=== PATIENT | female | born 1965 | race Caucasian/White ===

== ENCOUNTER 2023-10-15 11:13 | Emergency (ER) | payer OTHER, SELFPAY ==
[2023-10-15 11:20] VITALS: BP 145/92; PULSE 56; RESP 14; TEMP 36.6; O2SAT 99; BMI 21.5
[2023-10-15 11:52] VITALS: PULSE 62; O2SAT 98
--- NOTE | 2023-10-15 12:00 | ED_ITS ---
HPI - General Adult General Chief complaint: Unspecified Complaint, Adult Stated complaint: Confused, dizzines,heart palpitations Time Seen by Provider: 10/15/23 11:23 History of Present Illness HPI narrative: This 58-year-old female comes in reporting migraine headache with nausea. She also states that she feels some in her mid and chest discomfort and has had some palpitations. She states that she normally takes Excedrin migraine with sufficient relief for her headache however this 1 is more intense and rates that at 8/10 in severity. She is not taking any other medications. She does not report any lightheadedness or shortness of breath. She does not have any exercise intolerance. Related Data Previous Rx's Medication Instructions Recorded ketorolac 10 mg tablet 10 mg PO Q8H 5 days #15 tabs 10/15/23 ondansetron HCl 4 mg tablet 4 mg PO Q6H #20 tabs 10/15/23 Allergies Allergy/AdvReac Type Severity Reaction Status Date / Time Sulfa (Sulfonamide Allergy Unknown Hives Verified 10/15/23 11:25 Antibiotics) Review of Systems Status of ROS: Reports: 10 or more systems reviewed and unremarkable except as noted in History and below Narrative: Constitutional: No fevers, no weight gain or loss. Eyes: No discharge. No vision changes. HENT: No congestion, no sore throat, no ear pain. Cardiovascular: She reports palpitations. Respiratory: No shortness of breath, no wheezes, no cough. Gastrointestinal: No abdominal pain, no diarrhea. Nausea with a couple episodes of vomiting related to migraine headache. Genitourinary: No dysuria, no hematuria. Musculoskeletal: Normal range of motion. Skin: No rashes, no pruritis. Neurological: No dizziness, weakness, sensory change, speech change. Endo/Heme/Allergies: No bruising or bleeding. No polydipsia. Pysch: no suicidality, no anxiety, no insomnia. All other systems reviewed and are negative. PFSH PFSH Social History Smoking Status: Former smoker How often do you have a drink containing alcohol: never AUDIT-C Alcohol total score: 0 Non-prescribed substance use: denies use Exam Narrative: Exam Narrative: Constitutional: Well-developed, well-nourished, no acute distress. HEENT: Normocephalic, atraumatic. Neck: Normal range of motion. Nontender. Supple. Heart: Regular. No murmurs. Normal rate. Intact distal pulses. Lungs: Clear to auscultation. No chest discomfort. No wheezes, rhonchi, or rales. Abdomen: Normal bowel sounds. Nontender. No rebound tenderness. Genitalia: Deferred. Back: No midline tenderness. Normal range of motion. Extremities: Normal range of motion. No injury. Skin: Intact. No rash. Warm. No erythema or pallor. Neurologic: No altered sensation. No weakness. Alert and oriented. Psychiatric: No suicidality. No anxiety or depression. No insomnia. Nursing notes and vitals signs are reviewed. Const: Vital Signs, click to edit/add: Vital Signs - 24 hr 10/15/23 11:20 10/15/23 11:52 10/15/23 12:01 Temperature 97.8 F Pulse Rate 62 Pulse Rate [Pulse Oximeter] 56 L Respiratory Rate 14 Blood Pressure 128/70 Blood Pressure [Le ft Upper Arm] 145/92 H Pulse Oximetry 99 98 Oxygen Delivery Me thod Room Air 10/15/23 12:04 10/15/23 12:15 10/15/23 12:30 Temperature Pulse Rate 59 L 57 L 69 Pulse Rate [Pulse Oximeter] Respiratory Rate Blood Pressure Blood Pressure [Le ft Upper Arm] Pulse Oximetry 100 99 96 Oxygen Delivery Me thod Course Vital Signs Vital signs: Initial Vital Signs Temperature 97.8 F 10/15/23 11:20 Temperature Source Temporal Artery Scan 10/15/23 11:20 Pulse Rate 56 L 10/15/23 11:20 Pulse Rhythm Regular 10/15/23 11:20 Respiratory Rate 14 10/15/23 11:20 Blood Pressure 145/92 H 10/15/23 11:20 Blood Pressure Mean 109 H 10/15/23 11:20 Blood Pressure Position Supine 10/15/23 11:20 Pulse Oximetry 99 10/15/23 11:20 Oxygen Delivery Method Room Air 10/15/23 11:20 Vital Signs Temperature 97.8 F 10/15/23 11:20 Pulse Rate 56 L 10/15/23 11:20 Respiratory Rate 14 10/15/23 11:20 Blood Pressure 145/92 H 10/15/23 11:20 Pulse Oximetry 99 10/15/23 11:20 Oxygen Delivery Method Room Air 10/15/23 11:20 Temperature 97.8 F 10/15/23 11:20 Pulse Rate 69 10/15/23 12:30 Respiratory Rate 14 10/15/23 11:20 Blood Pressure 128/70 10/15/23 12:01 Pulse Oximetry 96 10/15/23 12:30 Oxygen Delivery Method Room Air 10/15/23 11:20 Medications Administered Medications: Discontinued Medications Generic Name Dose Route Start Last Admin Trade Name Davide PRN Reason Stop Dose Admin Diphenhydramine HCl 25 mg 10/15/23 11:57 10/15/23 12:16 Diphenhydramine 50 Mg/Ml Inj IVP 10/15/23 11:58 25 mg ONCE ONE Administration Sodium Chloride 1,000 mls @ 1,000 mls/hr 10/15/23 12:00 10/15/23 12:17 0.9 % Sodium Chloride 1000 Ml IV 10/15/23 12:59 1,000 mls/hr .Q1H RIMA Administration Ketorolac Tromethamine 15 mg 10/15/23 11:57 10/15/23 12:16 Ketorolac 30 Mg/Ml Inj IVP 10/15/23 11:58 15 mg ONCE ONE Administration Ondansetron HCl 4 mg 10/15/23 11:57 10/15/23 12:16 Ondansetron 2 Mg/Ml Inj IVP 10/15/23 11:58 4 mg ONCE ONE Administration Medical Decision Making MDM Narrative Medical decision making narrative: This patient comes in reporting headache and feeling off. She states that she has some palpitations. She also reports some nausea related to her headache. EKG shows normal sinus rhythm except for rather frequent premature atrial contractions. There are no ST or T-wave abnormalities. An IV was established where the patient received a L of normal saline, Toradol 15 mg, Benadryl 25 mg, and Zofran 4 mg. Labs are acquired and these returned with normal findings. In particular her troponin returns at 0. She states that she is feeling better with the treatments she received. She is reassured and feels okay to return home. I did provide prescription for Toradol and Zofran. Lab Data Labs: Lab Results 10/15/23 10/15/23 Range/Units 11:57 12:02 WBC 5.98 (4.50-11.00) K/uL RBC 4.42 (4.00-5.20) m/uL Hgb 13.5 (12.0-16.0) gm/dL Hct 40.6 (33.0-51.0) % MCV 92 (80-100) fL MCH 31 (26-34) pg MCHC 33 (32-36) gm/dL RDW Coeff of Alirio 12.6 (11.5-15.5) % Plt Count 235 (140-440) K/uL Neut % (Auto) 63.2 (42.0-72.0) % Lymph % (Auto) 21.2 (20-44) % [place] % (Auto) 13.4 H (0.0-11.0) % Eos % (Auto) 1.7 (0.0-7.0) % Baso % (Auto) 0.5 (0.0-3.0) % Neut # (Auto) 3.78 (1.7-7.0) K/uL Lymph # (Auto) 1.27 (0.90-2.90) K/uL [place] # (Auto) 0.80 (0.00-0.90) K/UL Eos # (Auto) 0.10 (0.00-0.50) K/uL Baso # (Auto) 0.03 (0.00-0.30) K/uL Abs Immat Gran (auto) 0.00 (0.00-0.30) K/uL Imm/Tot Granulo (auto) 0.0 % Sodium 138 (135-149) mmol/L Potassium 3.8 (3.6-5.1) mmol/L Chloride 105 (96-114) mmol/L Carbon Dioxide 31 (20-32) mmol/L Anion Gap 2 L (7-15) mEq/L BUN 15 (7-30) mg/dL Creatinine 0.8 (0.5-1.5) mg/dL Estimated Creat Clear 70.88 Estimated GFR 85 ml/min Glucose 94 (60-115) mg/dL Calcium 9.5 (8.4-10.6) mg/dL Magnesium 2.1 (1.5-2.6) mg/dL POC Troponin I 0.00 L (0.01-0.04) ng/ml ECG Data Attestation: I personally reviewed and interpreted this ECG as follows: Interpretation: Sinus rhythm with premature atrial complexes. There are no specific ST or T- wave abnormalities. Rate is 71 beats per minute. Discharge Plan Discharge Clinical Impression: Heart palpitations, Migraine Patient Disposition: Home, Self-Care Condition: Improved Additional Instructions: Take medication as needed and indicated. Follow up with MD or return if worsening. Prescriptions: New ondansetron HCl 4 mg tablet 4 mg PO Q6H Qty: 20 0RF ketorolac 10 mg tablet 10 mg PO Q8H 5 Days Qty: 15 0RF Follow Up/Referrals: Teresa Miller DO [Primary Care Provider] - Stand Alone Forms: [facility] Info Instructions
[2023-10-15 12:01] VITALS: BP 128/70
[2023-10-15 12:04] VITALS: PULSE 59; O2SAT 100
[2023-10-15 12:12] LABS: Basophils Absolute Auto 0.03 K/uL (0.00-0.30); Basophils Percent Auto 0.5 % (0.0-3.0); Eosinophils Percent Auto 1.7 % (0.0-7.0); Hematocrit 40.6 % (33.0-51.0); Hemoglobin* 13.5 gm/dL (12.0-16.0); Lymphocytes Absolute Auto 1.27 K/uL (0.90-2.90); Lymphocytes Percent Auto 21.2 % (20-44); Mean Corpuscular HGB Conc 33 gm/dL (32-36); Mean Corpuscular Hemoglobin 31 pg (26-34); Mean Corpuscular Volume 92 fL (80-100); Monocytes Percent Auto 13.4 % (0.0-11.0); Neutrophils Absolute Auto 3.78 K/uL (1.7-7.0); Neutrophils Percent Auto 63.2 % (42.0-72.0); Platelet Count* 235 K/uL (140-440); RDW Coefficient of Variation % 12.6 % (11.5-15.5); Red Blood Count 4.42 m/uL (4.00-5.20); White Blood Count* 5.98 K/uL (4.50-11.00)
[2023-10-15 12:13] LABS: Slide Review Reflex No
[2023-10-15 12:15] VITALS: PULSE 57; O2SAT 99
[2023-10-15] MEDS: KETOROLAC 30 MG/ML inj 15 MG IVP (12:16)
[2023-10-15] MEDS: diphenhydrAMINE 50 MG/ML inj 25 MG IVP (12:16)
[2023-10-15] MEDS: ONDANSETRON 2 MG/ML inj 4 MG IVP (12:16)
[2023-10-15] MEDS: 0.9 % SODIUM CHLORIDE 1000 ml 1,000 ML IV (12:17)
[2023-10-15 12:23] LABS: Chloride* 105 mmol/L (96-114); Sodium* 138 mmol/L (135-149)
[2023-10-15 12:24] LABS: Potassium* 3.8 mmol/L (3.6-5.1)
[2023-10-15 12:26] LABS: Anion Gap 2 mEq/L (7-15); Carbon Dioxide* 31 mmol/L (20-32); Creatinine* 0.8 mg/dL (0.5-1.5); Est. Creatinine Clearance* 70.88; Estimated Glomerular Filt Rate 85 ml/min
[2023-10-15 12:27] LABS: Blood Urea Nitrogen* 15 mg/dL (7-30); Calcium* 9.5 mg/dL (8.4-10.6); Glucose* 94 mg/dL (60-115); Magnesium* 2.1 mg/dL (1.5-2.6)
[2023-10-15 12:30] VITALS: PULSE 69; O2SAT 96
== END 2023-10-15 13:20 | disposition home or self-care (01) ==
PROVIDERS: Emergency Provider Emergency Medicine Emergency Medical Services; PCP Family Medicine
DX: G43.909 Migraine, unspecified, not intractable, without status migrainosus (principal); R00.2 Palpitations
CPT/HCPCS: 36415; 80048; 83735; 84484; 85025; 93005; 96361; 96374; 96375; 99284; J1200; J1885; J2405; J7030